=== PATIENT | female | born 1985 | race Caucasian/White ===

== ENCOUNTER → 2016-06-08 | Outpatient (CLI) | payer BC ==
[~2016-06-08] MED LIST: MTR600X PO; OXYC-643 PO; PRENTAB26 PO
== END | disposition home or self-care (01) ==
LOC: C.LABSPEC 11:03
PROVIDERS: ATTEND Obstetrics & Gynecology
DX: N76.0 Acute vaginitis (principal)

== ENCOUNTER → 2016-06-21 | Outpatient (CLI) | payer BC ==
--- NOTE | 2016-06-21 09:33 | DIAGNOSTIC IMAGING REPORT ---
ABDOMEN COMPLETE (US) CLINICAL HISTORY: Upper abdominal pain. COMPARISON STUDY: Right upper quadrant ultrasound December 17, 2010. FINDINGS: The liver is sonographically normal. There are no gallstones. No gallbladder wall thickening is noted. The pancreas is within normal limits. There is no biliary ductal dilatation. The size of the spleen is normal. Both kidneys measure 10.4 cm in maximal dimension. There is no hydronephrosis. Renal echogenicity, size and cortical thickness are normal. The caliber of the abdominal aorta is normal. Visualized portions of the IVC are patent. There is no ascites. IMPRESSION: Normal abdominal ultrasound. Electronically signed by: Perry Da Silva M.D. 06/21/2016 9:31 AM Dictated Date/Time: 06/21/2016 9:30 AM
== END | disposition home or self-care (01) ==
LOC: C.ULTRBC 08:57
PROVIDERS: ATTEND Family Medicine
DX: R10.10 Upper abdominal pain, unspecified (principal)

== ENCOUNTER → 2017-05-24 | Outpatient (CLI) | payer OTHER | END | disposition home or self-care (01) | LOC: C.LABSPEC 15:30 | PROVIDERS: ATTEND Obstetrics & Gynecology | DX: N76.0 Acute vaginitis (principal) ==